=== PATIENT | female | born 1945 | race Caucasian/White ===

== ENCOUNTER 2016-11-15 10:25 | Inpatient (IN) | payer MEDICARE, OTHER ==
[2016-11-15] MEDS ORDERED: Colace 100 MG PO PRN (10:53)
[2016-11-15] MEDS ORDERED: Sodium Chloride 0.9% 10 ML FLUSH Syringe IV PRN (10:53)
[2016-11-15] MEDS ORDERED: Phenergan 25 MG INJ IV PRN (10:53)
[2016-11-15] MEDS ORDERED: TYLENOL 325 MG PO PRN (10:53)
[2016-11-15] MEDS ORDERED: PHARMACY DOSING REQUEST MC ONE (10:54)
[2016-11-15] MEDS ORDERED: Sodium Chloride 0.9% 500 ML 500 ML IV PRN (10:55)
[2016-11-15] MEDS ORDERED: Cardizem IV 50 MG/10 ML IV ONE (11:00)
[2016-11-15 11:09] LABS: BASOPHIL % 0.6 % (0.0-0.4); Granulocytes % 65.9 % (36.0-66.0); Lymphocytes % 18.8 % (24.0-44.0); Monocytes % 10.7 % (0.0-12.0); Platelet Count 271 K/mm3 (150-450); Red Blood Count 3.82 M/mm3 (4.1-5.4); Red Cell Distribution Width 16.5 % (11.5-14.0); White Blood Count 5.3 K/mm3 (4.0-10.5)
--- NOTE | 2016-11-15 11:31 | XRAY ---
Indication: Short of breath. New-onset atrial fibrillation. Comparison: None PA/lateral chest hyperinflated with blunting of both costophrenic angles and minimal scattered fibrosis/scarring. No focal infiltrate or consolidation. Heart is not enlarged. Bony thorax intact with mild osteopenia and degenerative changes. Impression: Nonacute hyperinflated chest with chronic features.
[2016-11-15] MEDS: CARDIZEM DRIP 100 MG/100 ML D5W 100 ML IV SCH ×3 (11:41→22:21)
[2016-11-15 11:42] LABS: ALBUMIN 3.2 g/dL (3.4-5.0); ANION GAP 12.5 MEQ/L (5-15); BILIRUBIN,TOTAL 0.3 mg/dL (0.2-1.0); Carbon Dioxide 26.4 mEq/L (21-32); Potassium 4.2 mEq/L (3.5-5.1); Total Protein 6.8 gm/dL (6.4-8.2)
[2016-11-15 12:52] LABS: INR 1.12 (0.8-3.0); PROTIME 12.5 SECONDS (9.95-12.35)
[2016-11-15] MEDS: ELIQUIS PO SCH ×2 (13:41→22:23)
[2016-11-15] MEDS: Protonix 40MG Tablet PO SCH (13:41)
[2016-11-15 14:22] LABS: COMPLETE URINE MICROSCOPIC? NO; Collection Type VOID
[2016-11-15] MEDS: Sodium Chloride 0.9% 10 ML FLUSH Syringe IV SCH (15:03)
[2016-11-15] MEDS: FEOSOL 325 MG PO SCH (22:23)
[2016-11-16] MEDS: Sodium Chloride 0.9% 10 ML FLUSH Syringe IV SCH ×3 (03:52→14:01)
[2016-11-16] MEDS ORDERED: CARDIZEM DRIP 100 MG/100 ML D5W 100 ML IV ONE (03:55)
[2016-11-16] MEDS: CARDIZEM DRIP 100 MG/100 ML D5W 100 ML IV SCH ×2 (04:38→10:57)
--- NOTE | 2016-11-16 09:17 | HP ---
HISTORY OF PRESENT ILLNESS: Ms. Sweet is a 71 y/o patient who presented to my clinic yesterday. She stated about a week ago she had went to see her carriage dogger and was told she had an irregular heart rate and that she needed to come see me, so she came to my clinic. My nurse did an EKG and she was found to be in atrial fibrillation with rapid ventricular response of heart rate of 140. The patient reported she had had some shortness of breath with exertion. She denied any chest pain or palpitations. She has had a cough and was losing her voice, but otherwise, really hadn't felt that bad. She has no history of atrial fibrillation. The patient was made a direct admission to the Intensive Care Unit at [facility] for further evaluation and management, and commercial sales specialist, Dr. Gómez was consulted and said he would see her today which is 11/16/16. REVIEW OF SYSTEMS: The patient denies any abdominal pain. She has had a little bit of swelling in her left hand since the IV was started, but this is not painful. No lower extremity edema. No rashes. Has had the hoarse voice and the cough. No palpitations. No chest pain. She reports the shortness of breath is a little bit better with exertion, although she still has it sometimes when she gets up to use the bathroom here in the hospital. She has noticed her stools have been darker sometimes, but no bright red blood. PAST MEDICAL HISTORY: Arthritis, rheumatoid, which she sees Dr. Manzanares in [place] for. Hypertension, history of ulcers in her esophagus which were diagnosed by Dr. Price. She reports history of a colonoscopy with Dr. Price. She is unsure what year this was. PAST SURGICAL HISTORY: None. SOCIAL HISTORY: She is and lives with her . She doesn't smoke. No alcohol use. FAMILY HISTORY: Her mother and father both have had hypertension. CURRENT MEDICATIONS: Amlodipine 10 mg daily, Enbrel 1 ml q week, famotidine 40 mg daily, lisinopril 40 mg daily, omeprazole 40 mg daily. ALLERGIES: SULFA. PHYSICAL EXAMINATION: VITAL SIGNS: Temperature current 97.7, temperature maximum 98.7, heart rate 98-125 currently 107, respiratory rate 15-21, O2 saturation 94-95% on room air, BP 120-153/75-93 currently 125/85. GENERAL: The patient is a pleasant, talkative lady lying in bed in no acute distress. CVS: Heart has an irregularly irregular rhythm and is tachycardic. No murmurs, gallops, or rubs are appreciated. CHEST: Clear to auscultation bilaterally. No crackles or wheezes. ABDOMEN: Soft, nontender, nondistended with normal bowel sounds. EXTREMITIES: No clubbing or cyanosis. Her left hand is slightly swollen. No erythema. No tenderness. SKIN: Warm, dry, and intact. LABORATORY DATA: Her Hgb was 8.8. WBC and platelet count were normal. Chloride was 108. NT Pro BNP was 1947. TSH 3.8. Albumin 3.2. Troponin less than 0.017. Iron was low at 13. UA was negative. Chest x-ray was read as no acute problems. ASSESSMENT AND PLAN: 1. ATRIAL FIBRILLATION WITH RAPID VENTRICULAR RESPONSE. She was made a direct admission to the Intensive Care Unit and given Cardizem 15 mg IV once and then started on a Cardizem drip which was continued through the night. Her heart rate is better, but still above 100. Dr. Gómez was consulted. I talked to him over the phone. He agreed with starting her on anticoagulation, so she was started on Eliquis. We have asked the pharmacy to dose this and she was started on Eliquis 5 mg PO bid. This was discussed with the patient it is to prevent clots in the atria from the atrial fibrillation that could cause a stroke. I also started her on a proton pump inhibitor. She has a history of esophageal ulcers. She has an echocardiogram ordered. 2. IRON DEFICIENCY ANEMIA. I am going to recheck her Hgb today and try to obtain reports from her old colonoscopy. I have ordered heme-occult for her stools X 3. Will continue to monitor this. 3. HYPERTENSION. Her BP is currently well controlled on the Cardizem drip.
[2016-11-16 09:46] LABS: BASOPHIL % 0.6 % (0.0-0.4); Eosinophil % 3.8 % (0.00-5.0); Granulocytes % 57.1 % (36.0-66.0); Mean Cell Volume 76.6 fl (78-100); Mean Corpuscular Hemoglobin 22.9 pg (26-32); Mean Platelet Volume 10.5 fl (6-9.5); Monocytes % 12.5 % (0.0-12.0); Platelet Count 289 K/mm3 (150-450); Red Blood Count 3.84 M/mm3 (4.1-5.4); Red Cell Distribution Width 16.5 % (11.5-14.0); White Blood Count 4.7 K/mm3 (4.0-10.5)
[2016-11-16] MEDS ORDERED: PREVNAR 13 SYRINGE IM ONE (10:00)
[2016-11-16 10:13] LABS: ANION GAP 12.6 MEQ/L (5-15); BLOOD UREA NITROGEN 16 mg/dL (9-20); CHLORIDE 108 mEq/L (98-107); Carbon Dioxide 24.9 mEq/L (21-32); Glucose 129 MG/DL (70-110); Potassium 3.9 mEq/L (3.5-5.1); SODIUM 142 mEq/L (136-145)
[2016-11-16] MEDS: FEOSOL 325 MG PO SCH ×3 (10:58→22:11)
[2016-11-16] MEDS: Protonix 40MG Tablet PO SCH (10:58)
[2016-11-16] MEDS: ELIQUIS PO SCH (10:59)
--- NOTE | 2016-11-16 12:31 | ECHO ---
Transthoracic echocardiographic examination and color Doppler was done on 11/15/2016. INDICATION: Atrial fibrillation. IMPRESSION: 1) NO DEFINITE REGIONAL WALL MOTION ABNORMALITY. ESTIMATED GLOBAL LEFT VENTRICULAR EJECTION FRACTION BETWEEN 50 AND 60%. 2) MILD MITRAL REGURGITATION. 3) MILD TRICUSPID REGURGITATION. RIGHT VENTRICULAR SYSTOLIC PRESSURE OF 34 MM OF MERCURY. 4) LEFT VENTRICULAR HYPERTROPHY. 5) MODERATELY DILATED LEFT ATRIUM. The left ventricle is visualized and demonstrated adequate motion of all the segments. Estimated global left ventricular ejection fraction between 50 and 60%. There is mild left ventricular hypertrophy. The mitral valve is seen and this opens adequately. There is mild mitral regurgitation. Left atrium is moderately enlarged. The aortic valve opens adequately. Right side chambers are normal. There is mild tricuspid regurgitation. Right ventricular systolic pressure of 34 mm of Mercury.
[2016-11-16] MEDS ORDERED: Cardizem CD 180 MG PO SCH (12:45)
--- NOTE | 2016-11-16 12:51 | CONS ---
THIS REPORT WAS AMENDED ON 11/16/16. CONSULT DATE: 11/16/16 BRIEF HISTORY: This is a 71 y/o female who was seen because of atrial fibrillation. Her rhythm disturbance was discovered a week ago when she was visiting her clay worker who noted that her heart rate was irregular. She was seen by Dr. Tobar yesterday and initial EKG shows that she was in atrial fibrillation. Patient was then placed on a Cardizem drip. Her heart rate is better controlled. She was started on Eliquis. Patient is unaware of having atrial fibrillation. She has been doing well from the cardiac standpoint and specifically denies any chest pains. No shortness of breath. No prior history of myocardial infarction or heart failure. She did have 1 episode of shortness of breath last Monday. No history of paroxysmal nocturnal dyspnea. No orthopnea. No syncopal attacks. No palpitations. CARDIOVASCULAR RISK FACTORS: Negative for diabetes. Positive for hypertension. She does not smoke. No known hyperlipidemia. Family history is negative for premature coronary artery disease. CURRENT MEDICATIONS: Cardizem drip, amlodipine, lisinopril, and omeprazole. REVIEW OF SYSTEMS: SEARCH ENGINE MARKETING MANAGER: There is no history of stroke or seizures. RESPIRATORY: No chronic cough. No hemoptysis. No history of pulmonary embolism. GI: No history of heartburn. No nausea. No vomiting. No diarrhea or constipation. : Negative for dysuria. No hematuria. No flank pains. PERIPHERAL VASCULAR: No history of deep vein thrombosis or claudication. ENDOCRINE: No history of thyroid disorder. HEMATOLOGY: No history of blood dyscrasia or transfusion. No easy bruising. SKIN: No active skin lesions. MUSCULOSKELETAL: She has arthritis. CONSTITUTIONAL: No significant weight gain or weight loss. No febrile episodes. PAST SURGICAL HISTORY: Unremarkable. SOCIAL HISTORY: She is . 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 No significant alcohol intake. PHYSICAL EXAMINATION: Her BP is 120/75, heart rate is about 106, respirations about 16. GENERAL: Patient is an elderly female who is alert and oriented who is not in any form of distress, obese. HEENT: Unremarkable. NECK: No significant JVD. No carotid bruit. CHEST: The breath sounds are clear. CARDIAC: Heart tones are variable. The rhythm is atrial fibrillation. There is no S3 gallop. There is a soft apical systolic murmur. ABDOMEN: Soft with no bowel sounds. EXTREMITIES: No significant edema with good distal pulses. The left arm is mildly swollen. EKG shows atrial fibrillation. Chest x-ray showed hyperinflated lungs. The creatinine is 0.97. GFR is 60. Serum electrolytes are within normal. CBC shows a Hgb of 8.8. Platelet count is 289. CONCLUSION: 1. IN ESSENCE, PATIENT PRESENTS WITH ATRIAL FIBRILLATION WITH RAPID VENTRICULAR RESPONSE. HER CHADS-VASC SCORE IS AROUND 3. GOAL OF TREATMENT IS RHYTHM CONTROL. WILL START HER ON MULTAQ. WILL CONTINUE THE CARDIZEM WHICH WILL SWITCH TO PO. CONTINUE WITH ELIQUIS. SHE HAS ANEMIA THAT NEEDS TO BE WORKED UP SHE WOULD BE REQUIRING A LONG-TERM ANTICOAGULATION. 2. HYPERTENSION. Will switch her amlodipine to Cardizem. Will follow-up with you.
[2016-11-16] MEDS: Multaq 400 MG PO SCH ×2 (14:00→22:11)
--- NOTE | 2016-11-16 14:41 | XRAY ---
Indication: Left arm swelling. Two-dimensional sonogram and color Doppler imaging of the major venous vessels of the left upper extremity was performed. Comparison: None No thrombus seen in the visualized left jugular, subclavian, axillary, cephalic, brachial, basilic, median cubital, radial, or ulnar veins. Veins demonstrate normal compressibility. Venous waveforms are normal with and without augmentation. Impression: Left upper extremity negative for venous thrombus.
[2016-11-16] MEDS ORDERED: Golytely Solution 4000 ML PO ONE (15:45)
[2016-11-17] MEDS ORDERED: Ketamine HCl 50 MG/ML IV ONE (08:00)
[2016-11-17] MEDS ORDERED: Cardizem CD 180 MG PO SCH (08:40)
--- NOTE | 2016-11-17 08:47 | PCM.NOTE ---
Date and Time: 11/17/16840 Subjective Assessment: She continues to have some shortness of breath with exertion. No chest pain, no palpations, no abdominal pain. She reports she slept pretty well last night. Her left hand swelling is better. - Review of Systems Constitutional: No Symptoms Eyes: No Symptoms Ears, Nose, & Throat: No Symptoms Respiratory: Short Of Breath Cardiac: No Symptoms Abdominal/Gastrointestinal: No Symptoms Genitourinary Symptoms: No Symptoms Musculoskeletal: No Symptoms Skin: No Symptoms Neurological: No Symptoms Objective Exam General Appearance: no apparent distress, alert, obese Neurologic Exam: alert, cooperative, normal mood/affect Skin Exam: normal color, warm, dry, other (mild swelling of left hand), No rash Respiratory Exam: normal breath sounds, lungs clear, No crackles/rales, No rhonchi, No wheezing Cardiovascular Exam: other (irregularly irregular and tachycardic), No murmur, No friction rub, No gallop Gastrointestinal/Abdomen Exam: soft, normal bowel sounds, No tenderness, No distention, No mass Extremity Exam: other (no c/c/e of legs) OBJECTIVE DATA Vital Signs: Vital Signs - 24 hr Temp Pulse Resp BP Pulse Ox 11/17/16 08:02 98.0 F 100 H 18 96 11/17/16 07:55 98.0 F 100 H 18 153/88 96 11/17/16 07:51 100 H 11/17/16 07:45 18 11/17/16 04:00 98.2 F 111 H 23 139/77 92 L 11/17/16 00:01 110 H 11/17/16 00:00 110 H 18 11/16/16 20:00 98.2 F 99 H 18 144/77 97 11/16/16 16:00 98.2 F 109 H 25 H 142/95 94 L 11/16/16 12:00 98.0 F 94 H 20 139/77 93 L 11/16/16 10:00 120 H 123/59 11/16/16 09:04 110 H 20 110/57 95 Pain Assessment - Last Documented Pain Scale Used 0-10 Pain Scale Intake and Output: Intake & Output 11/15/16 11/16/16 11/17/16 11/18/16 06:59 06:59 06:59 06:59 Intake Total 1194 4281 Output Total 1050 Balance 144 4281 Weight 118.8 kg 119 kg 119 kg Lab Results: Lab Results-Last 24 Hours 11/16/16 11/16/16 11/16/16 Range/Units 09:00 09:00 17:15 WBC 4.7 (4.0-10.5) K/mm3 RBC 3.84 L (4.1-5.4) M/mm3 Hgb 8.8 L (12.0-16.0) gm/dl Hct 29.4 L (35-47) % MCV 76.6 L (78-100) fl MCH 22.9 L (26-32) pg MCHC 29.9 L (32-36) g/dl RDW 16.5 H (11.5-14.0) % Plt Count 289 (150-450) K/mm3 MPV 10.5 H (6-9.5) fl Gran % 57.1 (36.0-66.0) % Lymphocytes % 26.0 (24.0-44.0) % Monocytes % 12.5 H (0.0-12.0) % Eosinophils % 3.8 (0.00-5.0) % Basophils % 0.6 (0.0-0.4) % Basophils # 0.03 (0-0.4) Sodium 142 (136-145) mEq/L Potassium 3.9 (3.5-5.1) mEq/L Chloride 108 H (98-107) mEq/L Carbon Dioxide 24.9 (21-32) mEq/L Anion Gap 12.6 (5-15) MEQ/L BUN 16 (9-20) mg/dL Creatinine 0.97 (0.55-1.30) mg/dl Estimated GFR > 60 ML/MIN Glucose 129 H (70-110) MG/DL Calcium 8.6 (8.5-10.1) mg/dL Stool Occult Blood NEGATIVE (Negative) Radiology Exams: Radiology Procedures Category Date Time Status CHEST 2 VIEWS (PA AND LAT) Urgent Exams 11/15/16 10:37 Completed ECHO W/2D AND DOPPLER [US] Routine Exams 11/16/16 08:00 Draft VENOUS UNILAT/LIMITED EXTREMIT [US] Routine Exams 11/16/16 12:30 Completed Assessment/Plan (1) Atrial fibrillation with RVR Current Visit: Yes Status: Acute Assessment & Plan: She has been seen by Dr. Gómez, tmr teacher. She was on cardizem drip which was changed to oral cardizem. She as also started on Multaq by Dr. Gómez. Her Eliquis is discontinued at this time as she is getting a colonoscopy today and upper endoscopy for her anemia work up as she will need intermediate anticoagulation in the future. I have increased her cardizem today from 180 to 240 mg as she continues to have a heart rate in 110's to 120's with exertion. She had an Echocardiogram done and read by Dr. Gómez. Please see his report. Dr. Gómez requested that she have a colonoscopy and upper endoscopy before her discharge. Code(s): I48.91 - UNSPECIFIED ATRIAL FIBRILLATION (2) Iron deficiency anemia Current Visit: Yes Status: Acute Assessment & Plan: Plan for upper endoscopy an colonoscopy today with the general surgeon. Reports from Dr. Price reviewed. Her hemoglobin Jul 2015 was normal as reported in our computer system. If her scopes are normal, will plan for hematology evaluation as outpatient. I have started her on ferrous sulfate as her iron levels were low. She denies vaginal bleeding. Code(s): D50.9 - IRON DEFICIENCY ANEMIA, UNSPECIFIED (3) Hypertension Current Visit: Yes Status: Acute Assessment & Plan: Continue cardizem. Currently fairly well controlled. Code(s): I10 - ESSENTIAL (PRIMARY) HYPERTENSION
[2016-11-17] MEDS ORDERED: Lactated Ringers 1,000 ML IV SCH (10:00)
[2016-11-17] MEDS: Cardizem CD 240 MG PO SCH (10:10)
[2016-11-17] MEDS: FEOSOL 325 MG PO SCH ×3 (10:11→21:26)
[2016-11-17] MEDS: Protonix 40MG Tablet PO SCH (10:11)
[2016-11-17] MEDS: Multaq 400 MG PO SCH ×2 (10:11→21:26)
[2016-11-17] MEDS ORDERED: DIPRIVAN 200 MG/20 ML IV ONE (14:51)
[2016-11-17] MEDS: Sodium Chloride 0.9% 10 ML FLUSH Syringe IV SCH ×4 (15:06→21:26)
[2016-11-18] MEDS: Sodium Chloride 0.9% 10 ML FLUSH Syringe IV SCH ×2 (05:12→08:02)
[2016-11-18] MEDS: Cardizem CD 240 MG PO SCH (07:59)
[2016-11-18] MEDS: FEOSOL 325 MG PO SCH (08:00)
[2016-11-18] MEDS: Protonix 40MG Tablet PO SCH (08:00)
[2016-11-18] MEDS: Multaq 400 MG PO SCH (08:05)
--- NOTE | 2016-11-18 08:55 | PCM.DCORD ---
- Discharge Discharge Date: 11/18/16 Disposition: Home, Self-Care Condition: Fair Prescriptions: New Diltiazem HCl 240 mg [Cardizem CD 240 MG] 240 mg PO Q24H10 #30 cap Apixaban [Eliquis] 2.5 mg PO BID #0 tablet Ferrous Sulfate 325 mg [Feosol 325 mg] 325 mg PO TID #90 tablet Dronedarone Hydrochloride 400* [Multaq 400 MG] 400 mg PO Q12HT #0 tablet Omeprazole 40 mg PO DAILY #30 capsule.dr Discontinued Amlodipine Besylate 10 mg [Norvasc 10 MG] 10 mg PO DAILY Lisinopril 40 mg PO DAILY Omeprazole 20 MG [Prilosec 20 mg] 20 mg PO HS Instructions: Atrial Fibrillation Additional Instructions: Scripts for Eliquis and Multaq need to come from her production control analyst, Dr. Kwan. Follow up with: CHELLY TELLES [Primary Care Provider] - 1 Week JOSIE KWAN [ACTIVE STAFF] - 1 Week GABO LOCK [COURTESY STAFF] - 1 Week Forms: Patient Portal Information
--- NOTE | 2016-11-18 11:57 | DS ---
DISCHARGE DIAGNOSES: 1) NEW ONSET ATRIAL FIBRILLATION WITH RAPID VENTRICULAR RESPONSE. 2) IRON DEFICIENCY ANEMIA. 3) HYPERTENSION. 4) DIVERTICULOSIS. 5) GASTROESOPHAGEAL REFLUX DISEASE. DISCHARGE PHYSICAL EXAMINATION: VITALS: Temperature current 98.2F, temperature max 98.2F, heart rate 93 to 116 currently 93, respiratory rate 20 to 24, blood pressure 129 to 138 over 69 to 83, weight 120 kg. Oxygen saturation 93 to 95% on room air. GENERAL: The patient is a pleasant talkative lady sitting up in bed in no acute distress. CVS: She has an irregularly irregular rhythm with a heart rate of 80. No murmurs, gallops or rubs are appreciated. CHEST: Clear to auscultation bilaterally. No crackles or wheezes. ABDOMEN: Soft, nontender, nondistended with normal bowel sounds. EXTREMITIES: No clubbing, cyanosis or edema. SKIN: Warm, dry and intact. HOSPITAL COURSE: 1) ATRIAL FIBRILLATION WITH RAPID VENTRICULAR RESPONSE: She was initially placed in the ICU with a Cardizem bolus followed by Cardizem drip. Drywall Sander, Dr. Gómez, was consulted and saw the patient. She was initially started on Eliquis 5 mg p.o. b.i.d. but then this was held as she was anemic and Dr. Gómez felt like she needed scoped before the Eliquis was continued and before she was discharged home. He also started her on Multaq and switched to oral Cardizem. At the time of discharge she is on Cardizem 240 mg daily, Multaq per Dr. Gómez's orders. She had echocardiogram with a normal ejection fraction. Please see his reports for the full dictation. Her thyroid test the TSH was just slightly elevated. Dr. Gómez told me that he wanted to change her Eliquis to 2.5 mg p.o. b.i.d. I have asked the nurse to obtain the orders for the Multaq and Eliquis from him directly. 2) IRON DEFICIENCY ANEMIA: Hemoglobin was low at 8.8. I checked iron studies and her iron level was low at 13 with normal total iron binding capacity. She was started on ferrous sulfate [address] Quesada, general surgeon, was consulted and did upper and lower endoscopies. He did not find any source for active bleeding. She had two stools that were negative for blood. I am going to have her see a stone finisher as an outpatient for further evaluation and treatment and continue the ferrous sulfate. 3) HYPERTENSION: Her blood pressure was well controlled with Cardizem so we are stopping her home amlodipine and lisinopril and this was explained to the patient. 4) GASTROESOPHAGEAL REFLUX DISEASE: I am going to change her omeprazole from home dose of 20 mg a day to 40 mg a day while she is on Eliquis. 5) DIVERTICULOSIS: This was incidentally found on her colonoscopy. DISCHARGE MEDICATIONS: Please see the discharge order. FOLLOW UP: She is to follow up with myself in one week, Dr. Gómez and stone finisher, Dr. Naranjo. DISPOSITION: The patient was discharged to home in fair condition.
[2016-11-18 13:04] VITALS: BP 124/69; PULSE 106; O2SAT 91
--- NOTE | 2016-11-18 16:14 | OP ---
SURGERY DATE: 11/17/16 SURGERY TIME: 1340 PREOPERATIVE DIAGNOSIS: 1. SCREENING. 2. EPIGASTRIC PAIN. POSTOPERATIVE DIAGNOSIS: 1. GRADE II GASTROESOPHAGEAL REFLUX DISEASE. 2. SMALL HIATAL HERNIA. 3. MODERATE DIVERTICULOSIS OF THE SIGMOID. PROCEDURE: 1. Colonoscopy complete to cecum. 2. EGD. SURGEON: Pedrito Quesada M.D. ANESTHESIA: MAC. COMPLICATIONS: None. CONDITION: Stable. INDICATION: Patient presents for EGD/colonoscopy. OPERATIVE PROCEDURE: Taken to endoscopy. MAC sedation provided. Upper scope performed. Esophagus normal down to esophagogastric junction. Grade II/III gastroesophageal reflux disease. A 1" hiatal hernia. Fundus, body, and antrum normal. Pylorus normal. Duodenal bulb normal. Second portion normal. Scope withdrawn, looped upon itself. Small hiatal hernia. Scope withdrawn. Vocal cords are normal. Lower Scope: Anal digital examination satisfactory. Scope advanced to the cecum. Circumferential withdrawal. Cecum, base of the cecum, appendiceal orifice. There was a 6/9 prep leaving some areas of mucosa covered with stool, but within the limits of this, the exam was normal mucosally. There was moderate diverticulosis of the sigmoid. Rectum and anus normal. There was no blood seen in either the upper or lower either bright red or black. The heme-occult was negative.
== END 2016-11-18 13:15 | disposition home or self-care (01) | DRG 310 ==
LOC: OBSVTOIN 10:25 → ICU 10:25 → MED SURG 11-17 14:35
PROVIDERS: ADMIT Internal Medicine; ATTEND Internal Medicine
PROC: 0DJD8ZZ Inspection of Lower Intestinal Tract, Via Natural or Artificial Opening Endoscopic (ICD-10-PCS; principal; 2016-11-17)
PROC: 0DJ08ZZ Inspection of Upper Intestinal Tract, Via Natural or Artificial Opening Endoscopic (ICD-10-PCS; 2016-11-17)
DX: I48.91 Unspecified atrial fibrillation (principal); D50.9 Iron deficiency anemia, unspecified; K57.30 Diverticulosis of large intestine without perforation or abscess without bleeding; I10 Essential (primary) hypertension; M06.9 Rheumatoid arthritis, unspecified; K21.9 Gastro-esophageal reflux disease without esophagitis; R10.13 Epigastric pain; M79.89 Other specified soft tissue disorders; K44.9 Diaphragmatic hernia without obstruction or gangrene; Z79.01 Long term (current) use of anticoagulants; Z79.899 Other long term (current) drug therapy; Z12.11 Encounter for screening for malignant neoplasm of colon
CPT/HCPCS: 00740; 00810; 36415; 71020; 80048; 80053; 81002; 82272; 82728; 83540; 83550; 83880; 84443; 84484; 85025; 85610; 90670; 93005; 93306; 93971; 99100; G0009; J2704; A9270-GY